=== PATIENT | male | born 1990 | race Two or more races ===

== ENCOUNTER 2022-07-10 15:51 | Emergency (ER) | payer OTHER ==
[2022-07-10 16:02] VITALS: BP 126/90; PULSE 82; RESP 18; TEMP 98; BMI 25.7
[2022-07-10 17:32] LABS: BASO % 0.6 % (0-2.0); EOS % 5.3 % (0-4.5); HEMATOCRIT 46.9 % (35.4-49); LYMPH % 29.3 % (8-40); MCHC 34.2 g/dl (32.0-35.9); MEAN CELL VOLUME 90.8 fl (80-96); MEAN PLT VOLUME 8.1 fl (7.5-11.1); MONO % 7.9 % (3.8-10.2); NEUT % 56.9 % (42.8-82.8); PLATELET COUNT 295 10^3/uL (134-434); RBC 5.17 M/mm3 (4.00-5.60); RDW 13.3 % (11.9-15.9)
[2022-07-10 17:52] LABS: BLOOD UREA NITROGEN 20.1 mg/dL (7-18); CALCIUM 8.9 mg/dL (8.5-10.1)
[2022-07-10 17:57] LABS: BILIRUBIN,TOTAL 0.2 mg/dL (0.2-1); TOT PROT 7.5 g/dl (6.4-8.2)
== END 2022-07-10 20:17 | disposition home or self-care (01) ==
LOC: JER 15:51
DX: R07.9 Chest pain, unspecified (principal); I10 Essential (primary) hypertension
CPT/HCPCS: 36415; 71046-TC-FY; 80053; 84484; 85025; 93005; 93010; 99285-25